=== PATIENT | female | born 1975 | race Caucasian/White ===

== ENCOUNTER 2017-05-03 05:26 | Day surgery (SDC) | payer OTHER ==
[~2017-05-03] VITALS: Ht 170.2 cm; Wt 98.4 kg
[~2017-05-03 05:26] MED LIST: AFRIN,GENASAL D15 ML BOTH NARES; ATARAX,VISTARIL25 MG PO; BENADRYL25 MG PO; ENDOCET 5-3251 EACH PO; FEOSOL325 MG PO; FERROUS SULFAT325 MG PO; IBUPROFEN800 MG PO; LABETALOL HCL100 MG PO; PRENATABS FA T1 EACH PO; Subutex; subutex PO
[2017-05-03] MEDS ORDERED: GUMMI BEAR MUL1 EACH PO (06:46)
[2017-05-03 06:50] VITALS: BP 119/80
[2017-05-03 09:35] VITALS: BP 130/70
[2017-05-03 10:17] VITALS: BP 130/76
== END 2017-05-03 10:21 | disposition home or self-care (01) ==
LOC: SDC 05:26
DX: N92.0 Excessive and frequent menstruation with regular cycle (principal); D64.9 Anemia, unspecified; Z87.891 Personal history of nicotine dependence
CPT/HCPCS: 88305; J0131; J1170; J1885; J2250; J3010